=== PATIENT | male | born 1960 ===

== ENCOUNTER 2017-10-01 07:25 | Day surgery (SDC) | payer OTHER ==
[~2017-10-01 07:25] MED LIST: LOSARTAN POTASS25 MG PO; NEXIUM40 M1 PO; SYNTHROID200 MCG PO
== END 2017-10-01 18:10 | disposition home or self-care (01) ==
LOC: CIR.AMB 07:25
DX: S52.532A Colles' fracture of left radius, initial encounter for closed fracture (principal)
CPT/HCPCS: 25118; 25280; 25609; C1776